=== PATIENT | male | born 1970 | race Caucasian/White ===

== ENCOUNTER 2023-02-03 11:00 | Emergency (ER) | payer OTHER, SELFPAY ==
[2023-02-03 11:10] VITALS: PULSE 65; RESP 18; TEMP 36.7; O2SAT 98
--- NOTE | 2023-02-03 11:47 | ED.GENADULT ---
HPI - General Adult General Chief complaint: Nausea/Vomiting/Diarrhea Stated complaint: diarrhea Source: patient Mode of arrival: ambulatory Limitations: no limitations History of Present Illness HPI narrative: Patient presents for evaluation of diarrhea for the last 5 days. He was recently traveling in [place] and states his symptoms started on arrival home. His had similar symptoms for one day. Denies any fever, chills, nausea, vomiting, blood or mucus in the stool, abdominal pain. He tried one dose of Kaopectate. Denies regular ETOH use. Related Data Allergies Allergy/AdvReac Type Severity Reaction Status Date / Time No Known Allergies Allergy Verified 02/03/23 11:17 Review of Systems Review of Systems: CONSTITUTIONAL: Denies fever, chills, or sweats. EYES: Denies visual changes, redness, or discharge. ENT: Denies rhinorrhea, congestion, sore throat, or otalgia. CARDIOVASCULAR: Denies chest pain, palpitations, or edema. RESPIRATORY: Denies cough or dyspnea. GASTROINTESTINAL: Reports diarrhea. denies abdominal pain, nausea, vomiting, blood/mucous in the stool. GENITOURINARY: Denies dysuria or hematuria. SKIN: Denies rash or itching. MUSCULOSKELETAL: Denies back pain, joint pain, or myalgia. NEUROLOGIC: Denies headache, numbness, dizziness, or weakness. PSYCHIATRIC: Denies anxiety or depression. PMFSH Past Medical History Medical History (Updated 02/03/23 @ 11:49 by ANATOLY Juarez, ) Abnormal EKG Anxiety Diarrhea Erosive esophagitis Excessive daytime sleepiness GERD (gastroesophageal reflux disease) Peptic ulcer disease Surgical History Surgical History (Updated 02/03/23 @ 11:49 by Kashif Espino, ANATOLY, ) No pertinent past surgical history Family History Family History Mother Cerebral aneurysm Social History Social History Smoking status: Never smoker Alcohol intake: current Substance use: never Substance use type: does not use Gender identity (if verbalized by the patient): Male Sexual Orientation (if Verbalized by the Patient): Straight or Heterosexual Spiritual care concerns: No Exam Narrative: GENERAL: Well-appearing, well-nourished, and in no acute distress. HEAD: Normocephalic, atraumatic. EYES: PERRLA and EOMI. ENT: Nares clear, no rhinorrhea or epistaxis. Mucous membranes moist. Oropharynx without tonsillar hypertrophy exudate or other lesions. Bilateral TMs pearly cavanaugh nonbulging NECK: Supple. No adenopathy or masses. No carotid bruits or JVD CHEST: Clear to auscultation. No respiratory distress. No wheezes rales or rhonchi HEART: Regular rate and rhythm. No murmur heard. Normal peripheral pulses. ABDOMEN: Soft, nontender, nondistended, normal active bowel sounds. EXTREMITIES: Normal range of motion. No edema. SKIN: Warm, dry, no rash. NEURO: No focal deficits. Alert and oriented x3. PSYCH: Normal mood and affect. Course Course Emergency Course: This is a 52-year-old male who presented for evaluation of diarrhea. He appears extremely well clinically. He has no abdominal tenderness or pain. I did offer to transfer him to the emergency department. He declined. I think this is reasonable as in the event that he has colitis there does not appear to be a complication based upon his physical exam. Will start Flagyl, Cipro, and Lomotil. He is advised to go to the emergency department for fevers, abdominal pain, or worsening symptoms. Otherwise follow-up with primary care provider this week. Patient in agreement plan of care Level of Care: Express Care Visit Vital Signs Vital signs: Vital Signs Temperature 36.7 C 02/03/23 11:10 Pulse Rate 65 02/03/23 11:10 Respiratory Rate 18 02/03/23 11:10 Pulse Oximetry 98 02/03/23 11:10 Temperature 36.7 C 02/03/23 11:10 Pulse Rate 65 02/03/23 11:10 Re
== END 2023-02-03 12:00 | disposition home or self-care (01) ==
PROVIDERS: Emergency Provider Nurse Practitioner; PCP Internal Medicine
DX: R19.7 Diarrhea, unspecified (principal); K21.9 Gastro-esophageal reflux disease without esophagitis; K22.10 Ulcer of esophagus without bleeding
CPT/HCPCS: 99203; G0463

== ENCOUNTER 2023-03-07 07:23 | Outpatient (CLI) | payer OTHER, SELFPAY ==
[2023-03-07 20:58] LABS: Alanine Aminotransferase 83 U/L (6-50); Albumin Level 4.6 g/dL (3.5-5.1); Alkaline Phosphatase 92 U/L (38-126); Anion Gap 8 mmol/L (8-16); Aspartate Amino Transferase 51 U/L (17-59); Bilirubin,Total 0.6 mg/dL (0.2-1.3); Blood Urea Nitrogen 17 mg/dL (9-20); Calcium 9.4 mg/dL (8.4-10.2); Carbon Dioxide 30 mmol/L (22-30); Chloride 102 mmol/L (98-107); Cholesterol 227 mg/dL (0-200); Estimated Glomerular Filt Rate > 60; Glucose 93 mg/dL (65-110); HDL Direct 29 mg/dL; Sodium 140 mmol/L (137-145); Triglycerides 357 mg/dL (<150)
[2023-03-07 21:07] LABS: Hematocrit 48.6 % (42.0-52.0); Hemoglobin 15.7 g/dL (14.0-18.0); Mean Corpuscular HGB Conc 32.3 g/dl (32-36); Mean Corpuscular Hemoglobin 30.1 pg (26-34); Mean Corpuscular Volume 93.1 fl (80-100); Mean Platelet Volume 9.6 fl (7.4-10.4); Platelet Count Result 248 k/mm3 (150-375); Red Blood Count 5.22 M/mm3 (4.6-6.20); Red Cell Distribution Width 13.3 % (11.5-14.5); White Blood Count 5.7 K/mm3 (4.5-10.0)
[2023-03-07 21:09] LABS: LDL Cholesterol Direct 124 mg/dL
[2023-03-07 21:26] LABS: Prostate Specific Antigen 0.9 ng/mL (< OR = 4.0)
[2023-03-07 21:36] LABS: Hemoglobin A1C 5.5 % (<5.7)
[2023-03-12 17:48] LABS: Testosterone Free 50.8 pg/mL (35.0-155.0); Testosterone Total 341 ng/dL (250-1100)
== END 2023-03-07 07:24 | disposition home or self-care (01) ==
LOC: ANHBWCLAB 07:26
PROVIDERS: PCP Nurse Practitioner Adult Health; Visit Provider Nurse Practitioner Adult Health
DX: Z13.9 Encounter for screening, unspecified (principal); Z12.5 Encounter for screening for malignant neoplasm of prostate; R79.89 Other specified abnormal findings of blood chemistry; E66.9 Obesity, unspecified
CPT/HCPCS: 36415; 80053; 80061; 83036; 84153; 84402; 84403; 84443; 85027; G0103

== ENCOUNTER 2023-05-08 06:52 | Outpatient (CLI) | payer OTHER, SELFPAY ==
[2023-05-08 19:20] LABS: Cholesterol 145 mg/dL (0-200); HDL Direct 34 mg/dL; Triglycerides 87 mg/dL (<150)
[2023-05-08 19:30] LABS: LDL Cholesterol Direct 83 mg/dL
== END 2023-05-08 06:53 | disposition home or self-care (01) ==
LOC: ANHBWCLAB 06:54
PROVIDERS: PCP Nurse Practitioner Adult Health; Visit Provider Nurse Practitioner Adult Health
DX: E78.1 Pure hyperglyceridemia (principal)
CPT/HCPCS: 36415; 80061

== ENCOUNTER 2024-06-02 06:38 | Outpatient (CLI) | payer OTHER, SELFPAY ==
[2024-06-02 19:05] LABS: Alanine Aminotransferase 34 U/L (6-50); Albumin Level 4.2 g/dL (3.5-5.1); Alkaline Phosphatase 56 U/L (38-126); Anion Gap 6 mmol/L (4-12); Aspartate Amino Transferase 64 U/L (17-59); Bilirubin,Total 0.8 mg/dL (0.2-1.3); Blood Urea Nitrogen 16 mg/dL (9-20); Carbon Dioxide 29 mmol/L (22-30); Chloride 106 mmol/L (98-107); Cholesterol 177 mg/dL (0-200); Estimated Glomerular Filt Rate > 60; Glucose 85 mg/dL (65-110); HDL Direct 41 mg/dL; Potassium 4.5 mmol/L (3.4-5.0); Sodium 141 mmol/L (137-145); Triglycerides 93 mg/dL (<150)
[2024-06-02 19:16] LABS: LDL Cholesterol Direct 100 mg/dL
[2024-06-02 19:22] LABS: Hematocrit 46.1 % (42.0-52.0); Hemoglobin 15.2 g/dL (14.0-18.0); Mean Corpuscular Hemoglobin 30.8 pg (26-34); Mean Corpuscular Volume 93.5 fl (80-100); Mean Platelet Volume 9.1 fl (7.4-10.4); Platelet Count Result 227 k/mm3 (150-375); Red Blood Count 4.93 M/mm3 (4.6-6.20); Red Cell Distribution Width 13.1 % (11.5-14.5); White Blood Count 4.5 K/mm3 (4.5-10.0)
[2024-06-02 19:35] LABS: Prostate Specific Antigen 0.9 ng/mL (< OR = 4.0)
== END 2024-06-02 06:39 | disposition home or self-care (01) ==
LOC: ANHBWCLAB 06:39
PROVIDERS: PCP Nurse Practitioner Adult Health; Visit Provider Nurse Practitioner Adult Health
DX: Z12.5 Encounter for screening for malignant neoplasm of prostate (principal); Z13.9 Encounter for screening, unspecified; R79.89 Other specified abnormal findings of blood chemistry
CPT/HCPCS: 36415; 80053; 80061; 84153; 84402; 84403; 85027; G0103